=== PATIENT | male | born 2000 | race Two or more races ===

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

== ENCOUNTER 2024-10-15 07:50 | Emergency (ER) | payer BC ==
[2024-10-15 07:59] VITALS: BP 126/84; PULSE 92; RESP 18; TEMP 98.8; BMI 25.8
[2024-10-15] MEDS: SODIUM CHLORIDE 0.9% 1000 ML INFUS.BAG IV ONE (08:10)
[2024-10-15] MEDS: PSEUDOEPHEDRINE HCL 30 MG TABLET PO ONE (08:15)
[2024-10-15] MEDS: IBUPROFEN 400 MG TABLET (FP) PO ONE (08:15)
[2024-10-15] MEDS: METOCLOPRAMIDE HCL INJECTION 10 MG/2 ML VIAL IVPUSH ONE (08:15)
[2024-10-15] MEDS ORDERED: ACETAMINOPHEN INJECTION 100 ML ONE (08:23)
[2024-10-15] MEDS ORDERED: PSEUDOEPHEDRINE HCL 30 MG TABLET ONE (08:23)
[2024-10-15] MEDS ORDERED: METOCLOPRAMIDE HCL INJECTION 10 MG/2 ML VIAL ONE (08:23)
[2024-10-15] MEDS ORDERED: IBUPROFEN 400 MG TABLET (FP) PO ONE (08:23)
[2024-10-15] MEDS: ACETAMINOPHEN 1000 MG/100 ML BAG IVPB ONE (08:40)
[2024-10-15 08:41] LABS: ABSOLUTE IMMATURE GRANULOCYTES 0.01 x10^3/uL (0.0-0.031); BASOPHILS # 0.02 x10^3/uL (0.01-0.08); EOSINOPHIL % 2.8 % (0.8-7.0); EOSINOPHILS # 0.22 x10^3/uL (0.04-0.54); HEMATOCRIT 44.4 % (40.1-51.0); HEMOGLOBIN 15.6 g/dL (13.7-17.5); MCHC 35.1 g/dl (32.3-36.5); MEAN CELL VOLUME 85.2 fl (79.0-92.2); MEAN PLT VOLUME 10.1 fl (9.4-12.4); MONOCYTE # 0.69 x10^3/uL (0.30-0.82); MONOCYTE % 8.8 % (5.3-12.2); PLATELET COUNT 199 x10^3/uL (163-337); RDW 11.5 % (11.9-15.3)
[2024-10-15 09:07] LABS: ALBUMIN 4.6 g/dl (3.4-5.0); ALK PHOS 89 U/L (45-117); ANION GAP 9 mmol/L (4-13); BILIRUBIN,TOTAL 0.3 mg/dl (0.2-1); CALCIUM 9.3 mg/dl (8.5-10.1); CHLORIDE 101 mmol/L (98-107); CO2 27 mmol/L (21-32); CREATININE 1.2 mg/dl (0.6-1.3); GLUCOSE,RANDOM 106 mg/dl (74-106); POTASSIUM 4.1 mmol/L (3.5-5.1); SGOT/AST 23 U/L (15-37); SGPT/ALT 35 U/L (7-52); SODIUM 137 mmol/L (136-145); TOT PROT 7.2 g/dl (6.4-8.2)
[2024-10-15 12:51] LABS: HCV DIAGNOSTIC IN-HOUSE W/RFLX NON-REACTIVE (NONREACTIVE); HIV INTERPRETATION NEGATIVE (NEGATIVE)
== END 2024-10-15 10:32 | disposition home or self-care (01) ==
LOC: FER 07:50
PROC: 3E033NZ Introduction of Analgesics, Hypnotics, Sedatives into Peripheral Vein, Percutaneous Approach (ICD-10-PCS; principal; 2024-10-15)
PROC: 3E033GC Introduction of Other Therapeutic Substance into Peripheral Vein, Percutaneous Approach (ICD-10-PCS; 2024-10-15)
DX: M79.10 Myalgia, unspecified site (principal); R05.9 Cough, unspecified; R09.81 Nasal congestion
CPT/HCPCS: 0241U-QW; 36415; 71046-TC-FY; 80053; 85025; 86803; 87389; 99284-25; J0131